=== PATIENT | male | born 1970 | race Caucasian/White ===

== ENCOUNTER 2017-07-16 16:10 | Emergency (ER) | payer SELFPAY ==
--- NOTE | 2017-07-16 17:24 | ER Document Report ---
HPI - HPI Patient complains to provider of: knee pain Pain Level: 5 Context: Patient is a 46-year-old male who presents emergency department from [facility] for evaluation of his left knee pain. Patient states that he is twisted his knee twice over the past 3 weeks. He admits to pain with flexion and extension on the medial aspect of his knee. Otherwise he denies any other chronic problems with this knee or previous surgeries. - CONSTITUTIONAL Constitutional: DENIES: Fever, Chills - EENT EENT: DENIES: Sore Throat, Ear Pain, Eye problems - NEURO Neurology: DENIES: Headache, Weakness, Vision blurred, Dizzinesss / Vertigo - CARDIOVASCULAR Cardiovascular: DENIES: Chest pain - RESPIRATORY Respiratory: DENIES: Trouble Breathing, Coughing - GASTROINTESTINAL Gastrointestinal: DENIES: Abdominal Pain, Black / Bloody Stools - URINARY Urinary: DENIES: Dysuria, Urgency, Frequency - MUSCULOSKELETAL Musculoskeletal: REPORTS: Extremity pain - left knee pain Past Medical History - Social History Smoking Status: Former Smoker Chew tobacco use (# tins/day): No Frequency of alcohol use: In rehabilitation for heavy ETOH use Drug Abuse: None Family History: Reviewed & Not Pertinent Patient has suicidal ideation: No Patient has homicidal ideation: No - Past Medical History Cardiac Medical History: Reports: Hx Hypercholesterolemia, Hx Hypertension Renal/ Medical History: Denies: Hx Peritoneal Dialysis Psychiatric Medical History: Reports: Hx Bipolar Disorder Vertical Provider Document - CONSTITUTIONAL Agree With Documented VS: Yes Notes: PHYSICAL EXAM GENERAL: Alert, interacts well. EXTREMITIES: Moves all 4 extremities spontaneously. Full range of motion of the left knee with negative drawer testing negative Apley test. Patient able to bear weight. Left hip full range of motion nontender ankle full range of motion nontender right knee full range of motion nontender.. No edema, dorsalis pedis pulses 2/4 bilaterally. No cyanosis. NEUROLOGICAL: Alert and oriented x4. Normal speech. PSYCH: Normal affect, normal mood. SKIN: Warm, dry, normal turgor. No rashes or lesions noted. - RESPIRATORY O2 Sat by Pulse Oximetry: 95 Course - Re-evaluation Re-evalutation: 07/16/17 18:02 Patient is a 46-year-old male is hemodynamically stable, no acute distress and afebrile. No evidence of a septic joint, gout flare, dislocation, or fracture on exam and imaging. Vitals wnl. At this time, I do not see an indication for labs or further imaging. Will discharge with conservative measures however without crutches due to [facility] staff present at the bedside stating that he cannot have it for the safety of other patients but they will come up with a solution at their facility, return precautions, and follow-up recommendations. - Vital Signs Vital signs: Temp Pulse Resp BP Pulse Ox 98.1 F 100 133/91 H 95 07/16/17 16:25 07/16/17 16:25 07/16/17 16:25 07/16/17 16:25 - Diagnostic Test Radiology reviewed: Image reviewed, Reports reviewed Discharge - Discharge Clinical Impression: Knee pain Qualifiers: Chronicity: acute Laterality: left Qualified Code(s): M25.562 - Pain in left knee Condition: Good Disposition: HOME, SELF-CARE Instructions: Ice & Elevation ([facility]), Suspected Internal Knee Injury ([facility]), Knee Immobilizing Splint ([facility]), Sprained Knee ([facility]) Additional Instructions: You can take Motrin up to 800 mg 3 times a day as needed for pain, he can also supplement with Tylenol 325-625 mg up to 4 times a day for additional pain. Otherwise please ice her knee 20 minutes on once an hour as needed for pain. Referrals: AMADOR CORTES, [ACTIVE STAFF] - Follow up as needed
--- NOTE | 2017-07-16 17:44 | RADIOLOGY REPORT (SQ) ---
EXAM DESCRIPTION: KNEE LEFT 4 VIEW COMPLETED DATE/TIME: 07/16/2017 5:34 pm REASON FOR STUDY: pain COMPARISON: None. NUMBER OF VIEWS: Four views. TECHNIQUE: AP, lateral, and both oblique radiographic images acquired of the left knee. LIMITATIONS: None. FINDINGS: MINERALIZATION: Normal. BONES: No acute fracture or dislocation. No worrisome bone lesions. JOINT: Joint spaces well-maintained. There is likely joint fluid. SOFT TISSUES: No metallic foreign bodies. OTHER: No other significant finding. IMPRESSION: No acute fractures. Joint spaces well-maintained. There is likely joint fluid. TECHNICAL DOCUMENTATION: JOB ID: [id number] [employer]- All Rights Reserved
[2017-07-16] MEDS ORDERED: IBUPROFEN 800 MG TABLET PO ONE (18:04)
[2017-07-16] MEDS ORDERED: FAMOTIDINE 20 MG TABLET PO ONE (18:04)
[2017-07-16 18:55] VITALS: BP 129/80
== END 2017-07-16 18:50 | disposition home or self-care (01) ==
LOC: ER 16:10
DX: M25.562 Pain in left knee (principal); Z87.891 Personal history of nicotine dependence
CPT/HCPCS: 99283; 73562; L1830